=== PATIENT | male | born 1995 | race Caucasian/White ===

== ENCOUNTER 2018-08-22 15:08 | Emergency (ER) | payer BC ==
[~2018-08-22] VITALS: Ht 172.7 cm; Wt 64.0 kg
[2018-08-22 15:19] VITALS: Ht 172.7 cm; Wt 64.0 kg
[2018-08-22 18:34] LABS: BASOPHIL % 0.3 % (0-2); PLATELET COUNT 231 x10^3mcL (130-400); RED CELL DISTRIBUTION WIDTH 12.7 % (11.5-14.5)
[2018-08-22 18:43] LABS: CALCIUM 10.6 mg/dL (8.5-10.1); CARBON DIOXIDE 25.9 mmol/L (21-32); CHLORIDE SERUM 97 mmol/L (98-107); CREATININE SERUM 1.3 mg/dL (0.7-1.3); GFR1 > 60 mL/min; GLUCOSE SERUM 96 mg/dL (74-106); POTASSIUM SERUM 3.7 mmol/L (3.5-5.1); SODIUM SERUM 140 mmol/L (136-145)
[2018-08-22 18:47] LABS: ALKALINE PHOSPHATASE 114 U/L (46-116); ALT/SGPT 26 U/L (16-63); AST/SGOT 22 U/L (15-37); BILIRUBIN TOTAL 0.6 mg/dL (0.20-1.00); MAGNESIUM 1.8 mg/dL (1.8-2.4)
[2018-08-22 18:51] LABS: ALBUMIN 5.3 g/dL (3.4-5.0); TOTAL PROTEIN, SERUM 9.5 g/dL (6.4-8.2)
[2018-08-22 20:34] LABS: UA SPECIFIC GRAVITY 1.025 (1.005-1.035); microscopic required? YES; urine erythrocyte NEGATIVE (NEGATIVE)
[2018-08-22 20:50] LABS: AMPHETAMINE QUAL UR NONE DETECTED (See below)
[2018-08-22 21:56] VITALS: BP 115/73
== END 2018-08-22 21:56 | disposition home or self-care (01) ==
LOC: ED 15:08
PROVIDERS: Emergency Medicine
DX: R11.10 Vomiting, unspecified (principal); R10.13 Epigastric pain; R53.1 Weakness
CPT/HCPCS: J2405; J3490; J7030